=== PATIENT | male | born 1945 | race Caucasian/White ===

== ENCOUNTER → 2019-04-14 | Outpatient (REF) | payer MEDICARE, OTHER | LOC: M LAB REF 09:29 | PROVIDERS: ATTEND Dermatology | DX: C43.4 Malignant melanoma of scalp and neck (principal) ==

== ENCOUNTER → 2020-05-09 | Outpatient (REF) | payer MEDICARE, OTHER | LOC: M LAB REF 13:46 | PROVIDERS: ATTEND Dermatology | DX: D23.62 Other benign neoplasm of skin of left upper limb, including shoulder (principal) | CPT/HCPCS: 11102; 17000; 17003; 17110; 88305; G0463 ==

== ENCOUNTER → 2020-08-16 | Outpatient (REF) | payer MEDICARE, OTHER | LOC: M LAB REF 13:54 | PROVIDERS: ATTEND Dermatology | DX: C44.41 Basal cell carcinoma of skin of scalp and neck (principal) ==

== ENCOUNTER → 2020-08-27 | Outpatient (REF) | payer MEDICARE, OTHER | LOC: M LAB REF 09:07 | PROVIDERS: ATTEND Dermatology | DX: L90.5 Scar conditions and fibrosis of skin (principal) ==

== ENCOUNTER → 2021-06-05 | Outpatient (REF) | payer MEDICARE, OTHER | LOC: M SFHCDERM 17:05 | PROVIDERS: ATTEND Physician Assistant | DX: L81.4 Other melanin hyperpigmentation (principal); L57.8 Other skin changes due to chronic exposure to nonionizing radiation; L82.1 Other seborrheic keratosis ==